=== PATIENT | female | born 1970 | race Caucasian/White ===

== ENCOUNTER 2024-02-20 06:35 | Day surgery (SDC) | payer BC ==
[2024-02-20] MEDS ORDERED: fentaNYL 100 MCG/2 ML SDV ONE (07:22)
[2024-02-20] MEDS ORDERED: Midazolam 1 MG/ML 2 ML SDV ONE (07:22)
[2024-02-20] MEDS ORDERED: Propofol 200 MG/20 ML SDV ONE ×3 (07:22→09:01)
[2024-02-20] MEDS: Lactated Ringers 1,000 ML IV SCH (07:24)
== END 2024-02-20 10:41 | disposition home or self-care (01) ==
LOC: JP.SDS 06:35
PROVIDERS: ATTEND Family Medicine
DX: D12.2 Benign neoplasm of ascending colon (principal); K21.01 Gastro-esophageal reflux disease with esophagitis, with bleeding; K29.81 Duodenitis with bleeding; G47.33 Obstructive sleep apnea (adult) (pediatric); Z88.2 Allergy status to sulfonamides
CPT/HCPCS: 00813; 43235; 45380; J2250; J2704; J3010; J7120; 88305

== ENCOUNTER 2024-03-22 10:55 | Emergency (ER) | payer BC ==
[2024-03-22 11:09] LABS: APPEARANCE,URINE SLIGHTLY CLOUDY (CLEAR); BILIRUBIN,URINE NEGATIVE (NEGATIVE); GLUCOSE,URINE NEGATIVE (NEGATIVE); KETONES,URINE NEGATIVE (NEGATIVE); LEUKOCYTE ESTERASE,URINE MODERATE (NEGATIVE); NITRITE,URINE NEGATIVE (NEGATIVE); OCCULT BLOOD,URINE LARGE (NEGATIVE); PH,URINE 5.5 (5.0-8.0); PROTEIN,URINE 100 mg/dL (NEGATIVE); UROBILINOGEN,URINE 0.2 EU/dL (0.2-1.0)
[2024-03-22 11:20] LABS: AMORPHOUS SEDIMENT,URINE FEW; BACTERIA,URINE MODERATE; COLOR,URINE OTHER (YELLOW); EPITHELIAL CELLS,URINE FEW; MUCUS,URINE NOT SEEN; RBC,URINE 20-30 (0-5); WBC,URINE 50-75 (0-5)
[2024-03-22] MEDS: Ketorolac 30 MG/ML SDV IM ONE (11:36)
== END 2024-03-22 11:54 | disposition home or self-care (01) ==
LOC: JP.ED 10:55
DX: N39.0 Urinary tract infection, site not specified (principal); E78.00 Pure hypercholesterolemia, unspecified; E11.9 Type 2 diabetes mellitus without complications; E66.9 Obesity, unspecified; Z68.36 Body mass index [BMI] 36.0-36.9, adult; Z90.49 Acquired absence of other specified parts of digestive tract; Z88.2 Allergy status to sulfonamides; Z79.84 Long term (current) use of oral hypoglycemic drugs; Z79.899 Other long term (current) drug therapy
CPT/HCPCS: 81001; 87086; 96372; 99283; J1885; 87088; 87186